=== PATIENT | male | born 1950 | race Caucasian/White ===

== ENCOUNTER → 2016-10-02 | Outpatient (CLI) | payer MEDICARE, MEDICAID ==
[~2016-10-02] MED LIST: AMLO5TAB4 PO; BARIUM SULF 2.1% 450 ML BTL (BERRY SMOOTHIE) PO ONE; BENA20TA48 PO; HYD25 PO; HYDR-3498 PO; IODIXANOL LOCM 100 ML BTL ONE
[2016-10-02 10:55] LABS: CREATININE 1.32 mg/dl (0.61-1.24)
--- NOTE | 2016-10-03 08:02 | RADRPT ---
PROCEDURE: CT Abdomen and Pelvis with contrast. CLINICAL INDICATION: Abdomen and pelvis pain. Recurrent right inguinal hernia. TECHNIQUE: CT scan of the abdomen and pelvis with contrast was performed. The patient was scanned following the uncomplicated intravenous administration of 90 cc of Visipaque 320. Coronal and sagit tea reformatted images were obtained from the axial source images. Images were reviewed on a Neuro[employer] solution PACS workstation. Total exam DLP is 1089.22 mGy-cm. CTDIvol is 18.46 mGy. One or more of the following dose reduction techniques were used: Automated exposure control, adjustment of the mA and/or kV according to patient size, use of iterative reconstruction technique. COMPARISON: Noncontrast CT scan of the abdomen and pelvis dated 09/25/2014. FINDINGS: The lung bases are normal. There is no pleural effusion. The liver is normal in size and attenuation. There is no focal hepatic lesion. The gallbladder and bile ducts are normal. The spleen is normal in size. There is no focal splenic lesion. Both adrenals are normal with no enlargement or mass. The pancreas is unremarkable with no mass or evidence of pancreatitis. Both kidneys demonstrate normal contrast enhancement. There is no solid renal mass or hydronephros is. There is a benign cyst anteriorly in the mid right kidney measuring 2.9 cm. There is no renal c alculus or ureteral calculus. The abdominal aorta is not dilated. There is calcification in the aorta consistent with atheroscler osis. There is no retroperitoneal lymphadenopathy or mass. There is no pelvic lymphadenopathy or mass. The bladder and distal ureters are normal. The prostate is enlarged. The periappendiceal region is unremarkable with no evidence of appendicitis. There is diverticulosis of the lower descending colon and sigmoid colon. There is no evidence of di verticulitis. There is a right inguinal hernia containing only mesenteric fat. There is no herniat ed bowel. The herniated mesenteric fat measures approximately 5.0 x 6.5 x 10.0 cm in AP, transverse , and cranial caudal dimensions. There is no free fluid or free gas. There are degenerative changes of the lower lumbar spine. There is no fracture or lytic lesion. IMPRESSION: 1. Benign cyst anteriorly in the mid right kidney measuring 2.9 cm. 2. Atherosclerosis. 3. Enlarged prostate. 4. Diverticulosis of the lower descending colon and sigmoid colon. 5. Right inguinal hernia containing only mesenteric fat measuring 5.0 x 6.5 x 10.0 cm. 6. Degenerative changes of the lower lumbar spine. 7. Otherwise unremarkable study. RPTAT: QQ .Ed Lozada MD, Date Time Electronically viewed and signed by .Ed Lozada MD, on 10/03/2016 08:02 .R/
== END | disposition home or self-care (01) ==
LOC: LAB 10:08
PROVIDERS: ATTEND Transplant Surgery
DX: K40.91 Unilateral inguinal hernia, without obstruction or gangrene, recurrent (principal)
CPT/HCPCS: 74177; 82565; 84520; Q9967

== ENCOUNTER 2016-10-04 13:36 | Outpatient (CLI) | payer MEDICARE, MEDICAID ==
[~2016-10-04] VITALS: Ht 180.3 cm; Wt 82.7 kg
[~2016-10-04 13:36] MED LIST changes: -BARIUM SULF 2.1% 450 ML BTL (BERRY SMOOTHIE) PO ONE; -IODIXANOL LOCM 100 ML BTL ONE
[2016-10-04 13:41] VITALS: BP 114/77; PULSE 92; RESP 18; Ht 180.3 cm; Wt 82.7 kg
--- NOTE | 2016-10-04 22:47 | CONS ---
Date/Time of Note Date/Time of Note DATE: 10/04/16 TIME: 22:18 Assessment/Plan Assessment/Plan Additional Assessment/Plan [facility] SUBSEQUENT OUTPATIENT CLINIC CONSULTATION NOTE PLACE OF SERVICE: [facility] DATE OF CONSULTATION: 10/06/2016 REASON FOR CONSULTATION: Recurrent right inguinal hernia REFERRING PHYSICIAN: Napoleon Cornejo MD Dear Dr. Cornejo: Thank you very much for asking me to remain involved as a surgical consult and management of Mr. Tripp Robles. Updated Clinical Summary: Patient is a very pleasant 65-year-old gentleman, well known to me from the laparoscopic hernia repair that I performed for him Jun 2014, with unfortunate recurrence that likely happened shortly after the operation. Prior to his initial operation, CT scan of the abdomen and pelvis on 09/25/2014 showed large bilateral inguinal hernias, right greater than left, with loculated right hydrocele. Had a history of hypertension as well as prior surgeries including appendectomy in [place] many years ago and left inguinal hernia repair at [facility]. Was diagnosed with prostate cancer that was treated with radiation (details missing) that recently finished. Patient had expressed desire to have the re-operation, but this had to be delayed due to his prostate treatment. Comorbidities: 1. Hypertension. 2. Hypercholesterolemia. 3. History of appendectomy many years ago in [place]. 4. History of left inguinal hernia repair at [facility]. 5. S/p radiation therapy (? other modalities) treatment of prostate cancer. History of Present Illness: Please see updated clinical summary for details. Patient does not have significant signs and symptoms of a groin pain on either side, although there is some discomfort at times, especially with activity, but he has never had any issues with bowel obstruction or need to go seek emergency care for this hernia. The patient does not report any significant changes in his hearing or vision. No difficulty with breathing or swallowing. No prior cardiopulmonary disease including no heart attacks in the past for stent placement. He was a smoker in the past, but he has not smoked for the past 25 years and has had no major issues with his lungs. He is able to walk as long as he wants and going up and down stairs is not a problem. He has been active at home, but is currently retired. He does not report any new skin rashes, joint pain, musculoskeletal disease, neurologic, psychiatric, or psychologic problems. He also does not report any blood in his stool or urine. ALLERGIES: NO KNOWN DRUG ALLERGIES. MEDICATIONS Previously on the following (please also see EHR for updated list): 1. Hydrochlorothiazide. 2. Amlodipine. 3. Benazepril. SOCIAL HISTORY: The patient is currently retired. He does not report any current history of smoking, drinking, or intravenous drug use. He did have a smoking history more than 25 years ago. FAMILY HISTORY: There is no history of cancers, significant issues with other medical problems, or hernias in the past. REVIEW OF SYSTEMS: Other than the above-mentioned, there are no other pertinent positives or pertinent negatives in a complete 14-point review of systems. PHYSICAL EXAMINATION GENERAL: The patient appears to be a very pleasant gentleman of descent, appearing stated age, BMI 25.4 and otherwise comfortable sitting in a chair. VITAL SIGNS: AVSS HEENT: His head is normocephalic and atraumatic. His extraocular muscles and hearing are grossly intact bilaterally and symmetrically. His sclerae are nonicteric. His oral cavity is clear, and his oral mucosa appeared to be pink and moist. He has relatively good dentition. NECK: Supple. There is no lymphadenopathy or JVD. There is no submental, submandibular, or supraclavicular lymphadenopathy. CHEST: Rises symmetrically with each breath, and he is breathing comfortably. He does not have any audible rhonchi, rales, or wheezing. HEART: His pulse is regular and palpable on the right wrist. His carotid arteries are palpable bilaterally in his neck, and he has normal capillary refill. ABDOMEN: Soft, nontender, and nondistended. He does have a scar associated with his previous appendectomy, his left side hernia repair, and most recent laparoscopic right inguinal repair. Examination of the right groin shows a large hernia which goes to the scrotum and is reducible with some effort on the patient's part, but certainly no significant tenderness, and the skin overlying this area is not erythematous. There are no peritoneal signs or guarding. His genitalia otherwise appear to be normal in appearance. SKIN: [place] and feels warm to touch. EXTREMITIES: His lower extremities contain no pitting edema bilaterally and symmetrically. NEUROLOGIC: He is awake, alert, and follows commands appropriately. LABORATORY DATA: More recent labs were not available. Previously drawn on 2013 show a white blood cell count of 6.3, hemoglobin 13.0, platelets 201. Electrolytes are normal. CO2 27, creatinine is 1.31. Total bilirubin 0.8, AST 19 , ALT 23, alkaline phosphatase 53, albumin 4.2, lipase 98. Urinalysis at that time was negative for nitrite, but there was trace leukocyte esterase. IMAGING: CT Abd/Pelvis in the last few weeks showed fat containing large R inguinal hernia. no loops of bowel and no bowel obstruction. Very small fat containing L inguinal hernia. No other major abnormalities. Note that I personally reviewed the CT scan, and I agree with their reported findings. IMPRESSION AND PLAN: A very pleasant 65-year-old gentleman, well known to me from the laparoscopic hernia repair that I performed for him Jun 2014, with unfortunate recurrence that likely happened shortly after the operation. I recommended re-operation with plan of possible laparoscopic exploration and likely an open right inguinal hernia repair with mesh. I reviewed the risks, benefits, and alternatives of this procedure in detail with the patient (no family present during my discussions with the patient), and after careful consideration of all the above, the patient appeared to understand and agreed with the plans. With the above assessment, I would recommend the following 1. Complete history and physical as preoperative workup to include recent laboratory checks. 2. Schedule the patient for his elective laparoscopic, possible open, hernia repair, possible with mesh, in the next few weeks. Thank you again for keeping us involved in the care of this very pleasant gentleman and his wonderful family. If there are any questions, please feel free to call me at [phone]. TOTAL VISIT TIME: 45 minutes of which more than half was spent in [id number] discussion with the patient, as well as coordination of care with multiple other providers. Consultation Date/Type/Reason Admit Date/Time Initial Consult Date Exam/Review of Systems Vital Signs Vitals Vital Signs Date Time Temp Pulse Resp B/P Pulse Ox O2 Delivery O2 Flow Rate FiO2 10/04/16 13:41 97.9 92 18 114/77 97 Room Air RACHEL VALIENTE M.D. Oct 04, 2016 22:39
== END 2016-10-04 16:28 | disposition home or self-care (01) ==
LOC: HPC 13:36
PROVIDERS: ATTEND Transplant Surgery
DX: K40.90 Unilateral inguinal hernia, without obstruction or gangrene, not specified as recurrent (principal); I10 Essential (primary) hypertension; N43.3 Hydrocele, unspecified; C61 Malignant neoplasm of prostate; E78.00 Pure hypercholesterolemia, unspecified
CPT/HCPCS: G0463

== ENCOUNTER 2016-10-17 05:27 | Day surgery (SDC) | payer MEDICARE, OTHER ==
[2016-10-17] VITALS (10 sets, daily range): BP systolic 83–138; BP diastolic 58–87; PULSE 82–88; RESP 14–18; Ht 180.3 cm; Wt 81.6 kg
[~2016-10-17] VITALS: Ht 180.3 cm; Wt 81.6 kg
[~2016-10-17 05:27] MED LIST changes: -HYDR-3498 PO
[2016-10-17] MEDS ORDERED: BENA1TAB13 PO (05:50)
[2016-10-17] MEDS ORDERED: BUPIVACAINE 0.25%/EPI (SDV) 30 ML INJ ONE (06:51)
[2016-10-17] MEDS ORDERED: D5W-0.45 NACL + KCL 20 MEQ 1,000 ML IV SCH (07:00)
[2016-10-17] MEDS ORDERED: CEFAZOLIN 2 GM/50 ML (PMX) 50 ML IVPB SCH (07:00)
[2016-10-17] MEDS ORDERED: PROPOFOL 20 ML ONE ×2 (07:16→10:50)
[2016-10-17] MEDS ORDERED: FENTAnyl 50 MCG/ML VIAL ONE (07:16)
[2016-10-17] MEDS ORDERED: ROCURONIUM 50 MG INJ ONE ×2 (07:16→10:50)
[2016-10-17] MEDS ORDERED: MIDAZOLAM 1 MG/ML 2 ML INJ ONE (07:16)
[2016-10-17 07:24] LABS: ADD UMIC YES; URINE BILIRUBIN (Dip) NEGATIVE (NEGATIVE); URINE BLOOD (Dip) TRACE (NEGATIVE); URINE COLOR LT. YELLOW (YELLOW); URINE GLUCOSE (Dip) NEGATIVE (NEGATIVE); URINE KETONES (Dip) NEGATIVE (NEGATIVE); URINE LEUKOCYTE ESTERASE (Dip) NEGATIVE (NEGATIVE); URINE NITRITE (Dip) NEGATIVE (NEGATIVE); URINE TOTAL PROTEIN (Dip) NEGATIVE (NEGATIVE); URINE UROBILINOGEN (Dip) 0.2 E.U./dL (0.1-1.0)
--- NOTE | 2016-10-17 07:35 | HPN ---
Date/Time of Note Date/Time of Note DATE: 10/17/16 TIME: 07:34 Interval H&P Admission Note Pt. seen H&P reviewed: No system changes Pt. seen H&P reviewed. No system changes (I attest that I have seen and examined the patient and reviewed the operation in detail, as well as its risks , benefits and alternatives of the operation). I attest that I have seen and examined the patient and reviewed in detail the operation, and its associated risks, benefits and alternative. I have answered all the patient's questions to the best of my ability and the patient wishes to proceed. Please refer to rest of electronic medical record for additional updates. RACHEL VALIENTE M.D. Oct 17, 2016 07:34
[2016-10-17] MEDS ORDERED: CEFAZOLIN 1 GM INJ ONE (07:50)
[2016-10-17] MEDS ORDERED: PHENYLephrine (100 MCG/ML) 5ML SYG ONE ×3 (07:51→08:16)
[2016-10-17 07:53] LABS: URINE RBCS 0-2 /HPF (0)
[2016-10-17 07:54] LABS: BACTERIA,URINE RARE
[2016-10-17] MEDS ORDERED: hydrALAzine 20 MG INJ IV PRN (08:00)
[2016-10-17] MEDS ORDERED: MEPERIDINE 25 MG INJ IV PRN (08:00)
[2016-10-17] MEDS ORDERED: LABETALOL HCL 20MG INJ IV PRN (08:00)
[2016-10-17] MEDS ORDERED: EPHEDrine SULFATE 50 MG/5 ML SYG IV PRN (08:00)
[2016-10-17] MEDS ORDERED: ONDANSETRON 4 MG INJ IV PRN (08:00)
[2016-10-17] MEDS ORDERED: HYDROmorphONE (0.2 MG/ML) 10ML SYG IV PRN ×3 (08:00)
[2016-10-17] MEDS ORDERED: DIPHENHYDRAMINE 50 MG INJ IV PRN (08:00)
[2016-10-17] MEDS ORDERED: morphine (1 MG/ML) 10ML SYRINGE IV PRN ×3 (08:00)
[2016-10-17] MEDS ORDERED: GLYCOPYRROLATE 0.4 MG INJ ONE (08:02)
[2016-10-17] MEDS ORDERED: METOCLOPRAMIDE 10 MG INJ ONE (08:02)
[2016-10-17] MEDS ORDERED: NEOSTIGMINE 3 MG/3 ML SYRINGE ONE (08:02)
[2016-10-17] MEDS ORDERED: KETOROLAC 30 MG INJ ONE (08:02)
[2016-10-17] MEDS ORDERED: ONDANSETRON 4 MG INJ ONE (08:02)
[2016-10-17] MEDS ORDERED: DEXAMETHASONE 4 MG/ML 1 ML INJ ONE (08:02)
[2016-10-17] MEDS ORDERED: BISACODYL 10 MG SUPP PR PRN (11:30)
[2016-10-17] MEDS ORDERED: DOCUSATE SODIUM 100 MG CAP PO PRN (11:30)
[2016-10-17] MEDS ORDERED: HYDROCODONE/APAP (5/325) TAB PO PRN ×2 (12:00)
--- NOTE | 2016-10-17 20:22 | OPR ---
Date/Time of Note Date/Time of Note DATE: 10/17/16 TIME: 11:21 Operative Report Operative Findings [facility] INPATIENT OPERATIVE NOTE PLACE OF SERVICE: [facility] DATE OF SURGERY: 10/17/16 PREOPERATIVE DIAGNOSIS: 1. Right inguinal hernia, recurrent after laparoscopic hernia repair June 2014 2. Hypercholesterolemia 3. History of appendectomy many years ago in [place] 4. History of left inguinal hernia repair at [facility] 5. S/p radiation therapy (? other modalities) treatment of prostate cancer 6. Hypertension POSTOPERATIVE DIAGNOSIS: 1. Right inguinal hernia, recurrent after laparoscopic hernia repair June 2014 2. Hypercholesterolemia 3. History of appendectomy many years ago in [place] 4. History of left inguinal hernia repair at [facility] 5. S/p radiation therapy (? other modalities) treatment of prostate cancer 6. Hypertension OPERATION: 1. Right inguinal recurrent hernia repair with mesh (Ventralight ST 17.8 cm x 22.9 cm oval) SURGEON: Rachel Valiente M.D. DENTAL FLOSS PACKER: None ANESTHESIA: General endotracheal tube anesthesia ANESTHESIOLOGIST: Rosa Christie M.D. BRIEF SUMMARY: An otherwise uncomplicated but somewhat challenging repair of a recurrent right inguinal hernia with mesh was performed. BRIEF HISTORY: The patient is a very pleasant 65-year-old gentleman, well known to me from the laparoscopic hernia repair that I performed for him Jun 2014, with unfortunate recurrence that likely happened shortly after the operation. Prior to his initial operation, CT scan of the abdomen and pelvis on 09/25/2014 showed large bilateral inguinal hernias, right greater than left, with loculated right hydrocele. Had a history of hypertension as well as prior surgeries including appendectomy in [place] many years ago and left inguinal hernia repair at [facility]. Was diagnosed with prostate cancer that was treated with radiation (details missing) that recently finished. Patient had expressed desire to have the re-operation, but this had to be delayed due to his prostate treatment. After he was done with his treatments, I met with the patient and family and counseled them regarding the possible options of treatment, and I suggested a attempt at repair of the recurrence with possible laparoscopic approach, but likely need for open surgery. We reviewed the operation in detail as well as the risks, benefits, alternatives, and expected outcomes of this operation. After careful consideration of all the risks, benefits, and alternatives, the patient and family appeared to understand those risks and wished to proceed with surgery. For a detailed report of my consultation with patient and family, please refer to my separate consultation note. STATEMENT OF THE INFORMED CONSENT: The patient and family appeared to understand the risks of the operation to include, but not be limited to risk of postoperative pain and scar tissue, possible infection or bleeding requiring other interventions such as opening the wound, placement of drainage catheters, or other operative interventions; possible injury to surrounding to structures including bowel, bladder, bile duct, or blood vessels, or solid organs such as liver, kidney, or pancreas requiring other interventions or procedures; possible leakage of bowel from anastomotic sites or suture lines causing significant increase in morbidity and mortality and requiring multiple interventions including but not limited to, placement of drainage catheters, imaging studies, as well as operative interventions; possible other source of sepsis such as urinary tract infections or pneumonias, or other sources of potentially life threatening problems such as deep venous thrombus formation causing pulmonary embolism, myocardial arrhythmias and infarctions, and even . After careful consideration of all their options, the patient and family appeared to understand and wished to proceed with surgery. DESCRIPTION OF PROCEDURE: After obtaining informed consent, the patient was brought into the operating room and was placed in a normal supine position, where successful general endotracheal tube anesthesia was performed. Intravenous access was already in place and intravenous antimicrobials had been appropriately chosen and dosed prior to the operation. The patient's abdominal skin was prepped and draped from the nipple line down to the level of the upper thighs including the genitalia in the usual sterile fashion. We then called a surgical time-out where the patient's identification, date of , nature of the operation, allergies, presence of intravenous antimicrobials, presence of needed equipment, and any other concerns were reviewed and agreed upon by all members of the operating room team. We then started the operation by using a scalpel to make an oblique skin incision, parallel and superior to the inguinal ligament. This was deepened through Scarpas and Campers fascia using electrocautery down to the external oblique aponeurosis. The external oblique aponeurosis was opened in the direction of its fibers through the external ring using a combination of scalpel and metzenbaum scissors. The ilioinguinal nerve was identified and protected from injury. The inguinal floor was exposed by creating superior and inferior flaps of the external oblique. The spermatic cord was identified, mobilized at the pubic tubercle and isolated using a Bramwell drain. This was done by dissecting the cremasteric fibers from the cord. The anteromedial aspect of the cord was examined and an indirect hernia sac was identified. The sac was carefully dissected free of the cord down to the level of the internal ring. The vas deferens and testicular vessels were identified and protected during the remainder of the operation. The sac was opened and the contents were reduced into the peritoneal cavity. The sac was suture ligated with 2-0 silk suture in a pursestring fashion. Any redundant sac was excised using electrocautery. The stump of the sac was checked for hemostasis and allowed to retract into the abdomen. The floor of the inguinal canal was assessed digitally and found to be intact. To repair the floor of the canal, a Ventralight ST 17.8 cm x 22.9 cm oval mesh was cut to size in an oval shape with a longitudinal lateral opening. Starting at the pubic tubercle, the mesh was secured flat with continuous/interrupted 2- 0 prolene sutures to the reflected edge of the inguinal ligament inferiorly and the conjoint tendon superiorly. The ends of the patch were draped around the cord structures at the level of the internal ring and the size of the opening was fitted to re-create an appropriately sized internal ring using additional interrupted 2-0 Prolene suture as needed. The Bramwell drain was removed and the cord itself was returned to its anatomic location above the mesh. Hemostasis was achieved using electrocautery. The external oblique aponeurosis was re- approximated using a continuous 3-0 vicryl suture, paying particular attention to the ilioinguinal nerve to protect it from injury. Scarpas fascia was closed with running 3-0 vicryl sutures, and the skin was closed using a 4-0 subcuticular continuous monofilament suture. The operative field was cleaned and dried. Steristrips were applied. The testes were checked and their presence in their normal anatomic position in the scrotum was confirmed. Light dressing was then applied. At the end of the operation, both the sponge count and needle count were reportedly correct x2. The patient tolerated the procedure without any complications. A surgical de- briefing was performed. ESTIMATED BLOOD LOSS: 10 mL BLOOD OR BLOOD PRODUCT TRANSFUSIONS: None to my knowledge. SPECIMENS: 1. Hernia sac RACHEL VALIENTE M.D. Oct 17, 2016 20:22
== END 2016-10-17 13:25 | disposition home or self-care (01) ==
LOC: SDS 05:27
PROVIDERS: ATTEND Transplant Surgery
DX: K40.91 Unilateral inguinal hernia, without obstruction or gangrene, recurrent (principal); E78.00 Pure hypercholesterolemia, unspecified; I10 Essential (primary) hypertension
CPT/HCPCS: 49651; 81001; 88302; C1781; J0690; J1100; J1885; J2175; J2250; J2370; J2405; J2710; J2765; J3010; 81003

== ENCOUNTER 2016-11-08 11:40 | Outpatient (CLI) | payer MEDICARE, OTHER ==
[~2016-11-08] VITALS: Ht 180.3 cm; Wt 60.9 kg
[~2016-11-08 11:40] MED LIST changes: +BENA1TAB13 PO; -BENA20TA48 PO; -HYD25 PO
[2016-11-08 11:54] VITALS: BP 136/77; PULSE 88; RESP 18; Ht 180.3 cm; Wt 60.9 kg
--- NOTE | 2016-11-08 12:11 | PN ---
Date/Time of Note Date/Time of Note DATE: 11/08/16 TIME: 12:01 Assessment/Plan Assessment/Plan Assessment/Plan [facility] Progress Note Date of Service: 11/08/16 Today's Impression & Plan: Overall doing well post op without major issues. No major wound problems. With above assessment, I've recommended the following for today: 1. F/u with PCP 2. F/u with us prn Thank you again for your great care of this very pleasant patient and wonderful family. If there are any questions, please feel free to call me at [phone]. TOTAL VISIT TIME: 20 minutes of which more than half was spent in [id number] discussion with the patient, possibly including family, as well as coordination of care between multiple physicians and providers. Disclaimer: Inadvertent spelling or grammatical errors are likely due to EHR/ dictation software use and do not reflect on the overall quality of patient care. Updated Clinical Summary: The patient is a very pleasant 65-year-old gentleman, well known to me from the laparoscopic hernia repair that I performed for him Jun 2014, with unfortunate recurrence that likely happened shortly after the operation. Prior to his initial operation, CT scan of the abdomen and pelvis on 09/25/2014 showed large bilateral inguinal hernias, right greater than left, with loculated right hydrocele. Had a history of hypertension as well as prior surgeries including appendectomy in [place] many years ago and left inguinal hernia repair at [facility]. Was diagnosed with prostate cancer that was treated with radiation (details missing) that recently finished. Patient had expressed desire to have the re-operation, but this had to be delayed due to his prostate treatment. S/p an otherwise uncomplicated but somewhat challenging repair of a recurrent right inguinal hernia with mesh (Ventralight ST 17.8 cm x 22.9 cm oval ) on 10/17/16. Comorbidities: 1. Right inguinal hernia, recurrent after laparoscopic hernia repair June 2014; recurrence shortly post op. S/p an otherwise uncomplicated but somewhat challenging repair of a recurrent right inguinal hernia with mesh on 10/17/16. 2. Hypercholesterolemia 3. History of appendectomy many years ago in [place] 4. History of left inguinal hernia repair at [facility] 5. S/p radiation therapy (? other modalities) treatment of prostate cancer 6. Hypertension Subjective: No major events or complaints; no abd pain and under control with medications; no n/v/d; no sob or cp; + flatus; + BM and normal; + activity Objective: Vitals: See below Exam: GENERAL: On exam, the patient was sitting in a chair and appeared to be comfortable and in no acute distress. ABDOMEN: Soft, nontender and nondistended. Incision is clean, dry and intact without any evidence of erythema, edema, discharge, or hernia. There are no peritoneal signs or guarding. SKIN: Skin appears to be pink and feels warm to touch. NEUROLOGIC: Patient is awake, alert, and follows commands appropriately. Exam/Review of Systems Vital Signs Vitals Vital Signs Date Time Temp Pulse Resp B/P Pulse Ox O2 Delivery O2 Flow Rate FiO2 11/08/16 11:54 98.1 88 18 136/77 99 Room Air RACHEL VALIENTE M.D. Nov 08, 2016 12:11
== END 2016-11-08 16:51 | disposition home or self-care (01) ==
LOC: HPC 11:40
PROVIDERS: ATTEND Transplant Surgery
DX: K40.90 Unilateral inguinal hernia, without obstruction or gangrene, not specified as recurrent (principal); E78.00 Pure hypercholesterolemia, unspecified; I10 Essential (primary) hypertension; Z90.49 Acquired absence of other specified parts of digestive tract
CPT/HCPCS: G0463